=== PATIENT | male | born 1965 | race Two or more races ===

== ENCOUNTER 2022-10-26 06:10 | Emergency (ER) | payer BC ==
[~2022-10-26] VITALS: Ht 175.3 cm; Wt 75.0 kg
[2022-10-26] MEDS ORDERED: ONDANSETRON HCL 4MG/2ML INJ IV STA (06:38)
[2022-10-26] MEDS ORDERED: SODIUM CHLORIDE 0.9% 1,000 ML IV ONE (06:45)
[2022-10-26 08:46] LABS: CHLORIDE 102 mEq/L (98-107)
[2022-10-26 08:52] LABS: BASOPHILS % 0.7 % (0.0-2.0); HEMATOCRIT. 45.9 % (42.0-52.0); HEMOGLOBIN. 15.6 g/dL (14.0-18.0); LYMPHOCYTES % 15.9 % (20.0-50.0); MEAN CORPUSCULAR HEMOGLOBIN 30.3 pg (28.0-32.0); MEAN CORPUSCULAR VOLUME 89.3 fL (80.0-94.0); MONOCYTES % 6.2 % (2.0-8.0); NEUTROPHILS % 75.2 % (40.0-76.0); PLATELET 171 x1000/uL (130-400); RED BLOOD CELL COUNT 5.14 mill/uL (4.7-6.1); RED CELL DISTRIBUTION WIDTH 13.6 % (11.6-14.6)
[2022-10-26 11:28] VITALS: BP 90/60
== END 2022-10-26 12:00 | disposition home or self-care (01) ==
LOC: ER 06:10
DX: R55 Syncope and collapse (principal); R94.5 Abnormal results of liver function studies; Z88.8 Allergy status to other drugs, medicaments and biological substances
CPT/HCPCS: 36415; 71045; 80053; 83605; 83880; 84484; 85025; 93005; 99285; J7030